=== PATIENT | female | born 1945 | race Caucasian/White ===

== ENCOUNTER 2020-04-18 20:32 | Emergency (ER) | payer BC, MEDICAID, MEDICARE ==
--- NOTE | 2020-04-18 21:25 | EDM.PDOC ---
ED HPI GENERAL MEDICAL PROBLEM - General Chief Complaint: Abdominal Pain Stated Complaint: PAIN IN CHEST, MOVES INTO LOWER BACK Time Seen by Provider: 04/18/20 21:00 Source of Information: Reports: Patient, Family History Limitations: Reports: No Limitations - History of Present Illness INITIAL COMMENTS - FREE TEXT/NARRATIVE: 75-year-old female who had some mild abdominal discomfort prior to eating supper tonight, which worsened significantly after eating. She has right upper quadrant pain radiating around to the back, and early was radiating into the right shoulder. She took a few antacids without much benefit. Minimal nausea, no vomiting, no fevers or chills. Slight increased pain with a deep breath but no shortness of breath or cough. Pain seems to be improving slightly now. She thinks she had an episode like this a few years ago but not recently. She is otherwise very healthy, on no medications and has no abdominal surgery history. Onset: Gradual Duration: Hour(s): (4 hours) Location: Reports: Chest, Abdomen, Back, Other (Radiating to the right shoulder) Quality: Reports: Ache, Pressure Improves with: Reports: None Worsens with: Reports: Other (Slight increase in pain with a deep breath, seemed to be worse after eating) Associated Symptoms: Reports: Malaise. Denies: Fever/Chills, Headaches, Shortness of Breath Right Upper Abdomen Pain Score (Numeric/FACES): 6 - Related Data Allergies Allergy/AdvReac Type Severity Reaction Status Date / Time Penicillins Allergy Itching Verified 04/18/20 20:54 Home Meds: Home Meds NK [No Known Home Meds] 04/18/20 [History] Past Medical History HEENT History: Reports: Impaired Vision Cardiovascular History: Reports: High Cholesterol [employer] History: Reports: Musculoskeletal History: Reports: Arthritis - Past Surgical History GI Surgical History: Reports: Colonoscopy Social & Family History - Tobacco Use Tobacco Use Status *Q: Never Tobacco User - Caffeine Use Caffeine Use: Reports: Coffee - Recreational Drug Use Recreational Drug Use: No ED ROS GENERAL - Review of Systems Review Of Systems: See Below Constitutional: Reports: Malaise. Denies: Fever, Chills HEENT: Reports: No Symptoms Respiratory: Reports: Pleuritic Chest Pain Cardiovascular: Denies: Chest Pain GI/Abdominal: Reports: Abdominal Pain, Nausea. Denies: Constipation, Diarrhea, Vomiting : Reports: No Symptoms Skin: Reports: No Symptoms Neurological: Reports: No Symptoms Psychiatric: Reports: No Symptoms ED EXAM, GI/ABD - Physical Exam Exam: See Below Exam Limited By: No Limitations General Appearance: Alert, No Apparent Distress Eyes: Bilateral: Normal Appearance (No jaundice) Head: Atraumatic Respiratory/Chest: No Respiratory Distress, Lungs Clear Cardiovascular: Regular Rate, Rhythm GI/Abdominal Exam: Soft, Tender (She does have tenderness along the lower aspect of the right anterolateral chest wall, and some pain with palpation in the right upper quadrant but no guarding or rebound) Extremities: Normal Inspection Neurological: Alert, Oriented Psychiatric: Normal Affect, Normal Mood Skin Exam: Warm, Dry Course - Vital Signs Last Recorded V/S: Last Vital Signs Temp 97.2 F 04/18/20 20:52 Pulse 67 04/18/20 21:20 Resp 16 04/18/20 21:20 BP 144/102 H 04/18/20 21:20 Pulse Ox 98 04/18/20 21:20 - Orders/Labs/Meds Orders: Active Orders 24 hr Category Date Time Status Chest 2V [CR] Routine Exams 04/18/20 21:21 Taken Labs: Laboratory Tests 04/18/20 04/18/20 04/18/20 Range/Units 21:35 21:35 21:35 WBC 11.4 H (4.5-11.0) K/uL RBC 4.47 (3.30-5.50) M/uL Hgb 13.4 (12.0-15.0) g/dL Hct 40.4 (36.0-48.0) % MCV 90 (80-98) fL MCH 30 (27-31) pg MCHC 33 (32-36) % Plt Count 359 (150-400) K/uL Neut % (Auto) 62 (36-66) % Lymph % (Auto) 24 (24-44) % [place] % (Auto) 10 H (2-6) % Eos % (Auto) 3 (2-4) % Baso % (Auto) 0 (0-1) % Sodium 140 (140-148) mmol/L Potassium 4.4 (3.6-5.2) mmol/L Chloride 105 (100-108) mmol/L Carbon Dioxide 28 (21-32) mmol/L Anion Gap 7.5 (5.0-14.0) mmol/L BUN 19 H (7-18) mg/dL Creatinine 1.6 H (0.6-1.0) mg/dL Est Cr Clr Drug Dosing 21.15 mL/min Estimated GFR (MDRD) 31 L (>60) Glucose 110 H (74-106) mg/dL Calcium 9.3 (8.5-10.1) mg/dL Total Bilirubin 0.3 (0.2-1.0) mg/dL AST 15 (15-37) U/L ALT 24 (12-78) U/L Alkaline Phosphatase 93 (46-116) U/L Total Protein 7.4 (6.4-8.2) g/dL Albumin 3.5 (3.4-5.0) g/dL Globulin 3.9 H (2.3-3.5) g/dL Albumin/Globulin Ratio 0.9 L (1.2-2.2) Amylase 75 (25-115) U/L Lipase 190 (73-393) U/L Meds: Medications Discontinued Medications Generic Name Dose Route Start Last Admin Trade Name Freq PRN Reason Stop Dose Admin Acetaminophen 1,000 mg 04/18/20 22:11 04/18/20 22:23 Tylenol Extra Strength PO 04/18/20 22:12 1,000 mg ONETIME ONE Administration - Re-Assessments/Exams Free Text/Narrative Re-Assessment/Exam: 04/18/20 21:24 A bedside [id number] ultrasound showed what appeared to be some gallbladder distention with sludge but a sharp wall without pericholecystic fluid or edema. No stones were seen. There was some tenderness with the procedure but not directly over the gallbladder, she seemed to be more tender over the right lateral chest wall. Aorta was normal size. 04/18/20 21:25 Amylase, lipase, CBC and CMP were obtained as well as a two-view chest x-ray. Patient was comfortable enough not to need pain control at this time. 04/18/20 22:12 Renal function is not normal with a GFR of 31 and creatinine of 1.6, the rest of her labs are normal. She is unaware of kidney problems. Her pain continues to improve. She was given 1000 mg of p.o. acetaminophen, copies of her labs and told to recheck with her primary provider on [place] to recheck kidney function and set up a gallbladder ultrasound. She will return sooner if worsening such as fever or increased pain. I encouraged her to stay hydrated and follow a bland diet for the rest of the weekend. Departure - Departure Time of Disposition: 22:25 Disposition: Home, Self-Care 01 Clinical Impression: Abdominal pain Qualifiers: Abdominal location: right upper quadrant Qualified Code(s): R10.11 - Right upper quadrant pain - Discharge Information Instructions: Abdominal Pain, Adult, [id number] Referrals: Bess Brito MD [Primary Care Provider] - Forms: ED Department Discharge Care Plan Goals: Follow a bland diet through the weekend, stay hydrated, and recheck with your regular doctor early next week to discuss your kidney function, and any more tests for your abdominal pain such as a gallbladder ultrasound. Return to the emergency room if worsening at any time. Sepsis Event Note (ED) - Evaluation Sepsis Screening Result: No Definite Risk - Focused Exam Vital Signs: Vital Signs Temp Pulse Resp BP Pulse Ox 04/18/20 21:20 67 16 144/102 H 98 04/18/20 20:52 97.2 F 77 16 173/77 H 98 - My Orders Last 24 Hours: My Active Orders 04/18/20 21:21 Chest 2V [CR] Routine - Assessment/Plan Last 24 Hours: My Active Orders 04/18/20 21:21 Chest 2V [CR] Routine
[2020-04-18] MEDS ORDERED: Acetaminophen 500 MG Tab PO ONE (22:11)
--- NOTE | 2020-04-20 09:17 | CR ---
CHEST: 2 view CLINICAL HISTORY:Dyspnea COMPARISON:None FINDINGS: Heart size is borderline enlarged. Pulmonary vascularity is normal. There is some minimal streaky density in the left infrahilar region most likely representing some atelectasis. No definite infiltrates are seen. There is no effusion Impression: Mild cardiomegalyMinimal streaky density in the left infrahilar region. The this likely represent some scarring or atelectasis. Infiltrate is felt less likely
== END 2020-04-18 22:25 | disposition home or self-care (01) ==
LOC: JP.ED 20:32
DX: R10.11 Right upper quadrant pain (principal); Z88.0 Allergy status to penicillin
CPT/HCPCS: 36415; 71046; 71046-26; 80053; 82150; 83690; 85025; 99282; 99284-25; A9270-GY